=== PATIENT | male | born 1970 | race Asian ===

== ENCOUNTER 2024-12-16 16:54 | Emergency (ER) | payer MEDICAID ==
[~2024-12-16] VITALS: Ht 177.8 cm; Wt 88.6 kg
[2024-12-16 16:59] VITALS: TEMP 98.7
[2024-12-16] MEDS: LIDOCAINE 1% 10 ML VIAL ID ONE (18:22)
[2024-12-16] MEDS: HYDROCODONE/ACETAMINOPHEN 5-325 MG TABLET PO ONE (19:12)
[2024-12-16] MEDS ORDERED: CEPH-558 PO (20:33)
[2024-12-16] MEDS: PERTUSS(ACELL),DIPH,TET/PF 0.5 ML SYRINGE [ADULT] IM. ONE (20:41)
[2024-12-16] MEDS: CEPHALEXIN MONOHYDRATE 500 MG CAPSULE PO ONE (20:42)
[2024-12-16] MEDS: BACITRACIN 0.9 GM PACKET OINTMENT TP ONE (20:42)
[2024-12-16 21:15] VITALS: BP 168/26; PULSE 89; RESP 18; O2SAT 100
== END 2024-12-16 21:38 | disposition home or self-care (01) ==
LOC: EMS 16:54
DX: S01.112A Laceration without foreign body of left eyelid and periocular area, initial encounter (principal); I10 Essential (primary) hypertension; Y04.0XXA Assault by unarmed brawl or fight, initial encounter; Y93.89 Activity, other specified; Y92.89 Other specified places as the place of occurrence of the external cause; Y99.8 Other external cause status
CPT/HCPCS: 99283; 90715; 90471; 12015; J3490

== ENCOUNTER 2024-12-18 13:15 | Emergency (ER) | payer BC, MEDICAID ==
[~2024-12-18] VITALS: Ht 177.8 cm; Wt 88.6 kg
[~2024-12-18 13:15] MED LIST: CEPH-558 PO
[2024-12-18 13:32] VITALS: BP 132/89; PULSE 73; RESP 18; TEMP 97.9; O2SAT 98
== END 2024-12-18 15:26 | disposition home or self-care (01) ==
LOC: EMS 13:20
DX: S01.112D Laceration without foreign body of left eyelid and periocular area, subsequent encounter (principal); Z79.899 Other long term (current) drug therapy; X58.XXXD Exposure to other specified factors, subsequent encounter
CPT/HCPCS: 99281; Z7502

== ENCOUNTER 2024-12-21 14:05 | Emergency (ER) | payer BC ==
[~2024-12-21] VITALS: Ht 177.8 cm; Wt 88.6 kg
[2024-12-21 14:07] VITALS: BP 127/86; PULSE 79; RESP 18; TEMP 97.9; O2SAT 100
== END 2024-12-21 15:39 | disposition home or self-care (01) ==
LOC: EMS 14:12
DX: S01.112D Laceration without foreign body of left eyelid and periocular area, subsequent encounter (principal); Z79.899 Other long term (current) drug therapy; Z48.02 Encounter for removal of sutures; X58.XXXD Exposure to other specified factors, subsequent encounter
CPT/HCPCS: 99281; Z7502

== ENCOUNTER 2024-12-24 07:31 | Emergency (ER) | payer BC, MEDICAID ==
[~2024-12-24] VITALS: Ht 177.8 cm; Wt 88.6 kg
[2024-12-24 07:35] VITALS: BP 137/105; PULSE 78; RESP 18; TEMP 97.5; O2SAT 100
== END 2024-12-24 09:08 | disposition home or self-care (01) ==
LOC: EMS 07:31
DX: S05.32XA Ocular laceration without prolapse or loss of intraocular tissue, left eye, initial encounter (principal); X58.XXXD Exposure to other specified factors, subsequent encounter
CPT/HCPCS: 99282; Z7502